=== PATIENT | male | born 1985 | race Caucasian/White ===

== ENCOUNTER 2018-01-30 01:00 | Inpatient (IN) | payer OTHER ==
[~2018-01-30] VITALS: Ht 172.7 cm; Wt 57.0 kg
[2018-01-30] MEDS ORDERED: LIBRIUM (01:15)
[2018-01-30] MEDS ORDERED: METOCLOPRAMIDE HCL 10 MG/2 ML VIAL IV ONE (01:30)
[2018-01-30] MEDS ORDERED: PANTOPRAZOLE SODIUM IV 80 MG in IV DEXTROSE 5% 100 ML IV ONE (01:30)
[2018-01-30] MEDS ORDERED: PANTOPRAZOLE SODIUM IV 80 MG in IV DEXTROSE 5% 500 ML IV ONE (01:30)
[2018-01-30 01:39] LABS: BASOPHILS # (AUTO) 0.1 K/uL (0.0-8.0); BASOPHILS % (AUTO) 2.2 % (0.0-2.0); EOSINOPHILS # (AUTO) 0.1 K/uL (0.0-0.7); EOSINOPHILS % (AUTO) 1.6 % (0.0-7.0); HEMATOCRIT 26.5 % (36.7-47.1); HEMOGLOBIN 8.4 g/dL (12.5-16.3); LYMPHOCYTES % (AUTO) 22.9 % (20.5-51.5); MEAN CORPUSCULAR HEMOGLOBIN 22.7 uug (23.8-33.4); MEAN CORPUSCULAR HGB CONC 32 g/dL (32.5-36.3); MEAN CORPUSCULAR VOLUME 71.1 fL (73.0-96.2); MONOCYTES # (AUTO) 0.4 K/uL (2.0-10.0); NEUTROPHILS # (AUTO) 2.8 K/uL (1.8-8.9); NEUTROPHILS % (AUTO) 64.3 % (38.5-71.5); PLATELET COUNT (AUTO) 187 K/uL (152-348); RED BLOOD CELL COUNT(AUTO) 3.72 MIL/uL (4.06-5.63); WHITE BLOOD COUNT (AUTO) 4.3 K/uL (3.6-10.2)
[2018-01-30 01:44] LABS: CREATININE 0.9 mg/dL (0.6-1.3); POTASSIUM 3.8 mmol/L (3.5-5.1)
[2018-01-30] MEDS ORDERED: METOCLOPRAMIDE HCL 10 MG/2 ML VIAL ONE (01:47)
[2018-01-30] MEDS ORDERED: PANTOPRAZOLE SODIUM 40 MG VIAL ONE (01:47)
[2018-01-30 01:49] LABS: BILIRUBIN,DIRECT 0.7 mg/dL (0.0-0.2); BILIRUBIN,TOTAL 1.3 mg/dL (0.2-1.0); TOTAL PROTEIN, SERUM 7.8 g/dL (6.4-8.2)
[2018-01-30] MEDS ORDERED: LORAZEPAM 2 MG/1 ML VIAL IV ONE (02:00)
[2018-01-30] MEDS ORDERED: LORAZEPAM 2 MG/1 ML VIAL ONE (02:09)
--- NOTE | 2018-01-30 02:13 | NUR ---
Dr. Queen talking to Matt Bronson.
[2018-01-30] MEDS ORDERED: OCTREOTIDE ACETATE DRIP 1,250 MCG in IV NORMAL SALINE 250 ML IV ONE ×2 (02:15→05:45)
[2018-01-30] MEDS ORDERED: OCTREOTIDE ACETATE 50 MCG in IV NORMAL SALINE 50 ML IV ONE (02:15)
[2018-01-30] MEDS ORDERED: OCTREOTIDE ACETATE 500 MCG/1 ML VIAL ONE (02:24)
[2018-01-30] MEDS ORDERED: DIAZ10TA4 PO (02:29)
[2018-01-30] MEDS ORDERED: CHLO25CA22 PO ×3 (02:34)
[2018-01-30 02:38] LABS: EOSINOPHILS % (MANUAL) 1 % (0-8); LYMPHOCYTES % (MANUAL) 26 % (20-40); MONOCYTES % (MANUAL) 5 % (2-10); NEUTROPHILS % (MANUAL) 68 % (42-75)
--- NOTE | 2018-01-30 03:18 | NUR ---
TRANSFERED TO [facility]IA [facility]
[2018-01-30 03:20] VITALS: BP 95/62
--- NOTE | 2018-01-30 03:25 | NUR ---
IN FROM ER VIA [facility] ADMITTED 32 YEAR OLD M TO [facility] WITH DX OF HEMATEMESIS. AAOX3, DENIES ANY SOB OR CHEST PAIN. IV SITE ON LFA AND RFA, PATENT AND INTACT. ROUTINE ADMISSION DONE. PLAN OF CARE INITIATED. SAFETY MEASURES INITIATED, CALL ROBISON WITHIN REACH.
[2018-01-30] MEDS ORDERED: ONDANSETRON 4 MG/2 ML VIAL IV PRN (05:45)
[2018-01-30] MEDS ORDERED: ACETAMINOPHEN 325 MG TABLET PO PRN (05:45)
[2018-01-30] MEDS ORDERED: Z GUARD REMEDY PASTE 57 GM TUBE TOP PRN (05:45)
[2018-01-30] MEDS: LACTULOSE 20 G/30 ML LIQUID UDC PO SCH ×4 (06:31→23:00)
[2018-01-30] MEDS: IV NS 1000 ML 1,000 ML IV PRN ×2 (06:36→22:18)
[2018-01-30 06:53] LABS: HEMATOCRIT 28.8 % (36.7-47.1); HEMOGLOBIN 9.2 g/dL (12.5-16.3)
--- NOTE | 2018-01-30 06:53 | NUR ---
PT RESTING COMFORTABLY ON BED, NO SIGNS OF RESPIRATORY DISTRESS NOTED. IV SITE, PATENT AND INTACT. NO EPISODE OF NAUSEA/VOMITING THROUGHOUT THE SHIFT. SAFE ENVIRONMENT MAINTAINED AT ALL TIMES, CALL ROBISON WITHIN REACH
--- NOTE | 2018-01-30 07:41 | NUR ---
PATIENT RESTING COMFORTABLY IN BED, STABLE. NO S/S OF DISTRESS AT THIS TIME. ETOH WITHDRAWALS, WITH MONITOR AND MANAGE. AMBULATORY, A/OX4. WILL MONITOR THROUGHOUT SHIFT.
[2018-01-30 08:35] VITALS: BP 103/71
[2018-01-30] MEDS: SPIRONOLACTONE 50 MG TABLET PO SCH (08:36)
[2018-01-30] MEDS: FUROSEMIDE 40 MG TABLET PO SCH (08:36)
[2018-01-30] MEDS: PANTOPRAZOLE SODIUM 40 MG VIAL IV SCH ×2 (09:16→20:30)
[2018-01-30] MEDS: LORAZEPAM 2 MG/1 ML VIAL IV PRN ×3 (09:16→20:42)
[2018-01-30] MEDS: MULTIVITAMINS,THERAPEUTIC TABLET PO SCH (11:11)
[2018-01-30] MEDS: FOLIC ACID 1 MG TABLET PO SCH (11:11)
[2018-01-30] MEDS: THIAMINE HCL 100 MG TABLET PO SCH (11:11)
[2018-01-30 11:16] VITALS: BP 100/67
[2018-01-30 11:43] LABS: HEMATOCRIT 25.7 % (36.7-47.1); HEMOGLOBIN 8.2 g/dL (12.5-16.3)
[2018-01-30] MEDS: MORPHINE SULFATE 2 MG/1 ML DISP.SYRIN IV PRN ×3 (11:56→22:18)
[2018-01-30 12:35] LABS: *BILIRUBIN,URIN NEGATIVE (NEGATIVE); *BLOOD, URINE NEGATIVE (NEGATIVE); *CLARITY,URINE CLEAR (CLEAR); *COLOR,URINE LIGHT YELLOW (YELLOW); *KETONES,URINE NEGATIVE (NEGATIVE); *PROTEIN,URINE NEGATIVE (NEGATIVE); *UROBILINOGEN,URINE 0.2 E.U./dl (NORMAL); LEUKOCYTE ESTERASE ,URINE NEGATIVE (NEGATIVE); NITRITE, URINE NEGATIVE (NEGATIVE); UGLUCOSE TRACE (NEGATIVE)
[2018-01-30 13:00] LABS: BACTERIA,URINE NONE SEEN /HPF (NONE SEEN); RBC,URINE 0-3 /HPF (0-3); SQUAMOUS EPITHELIAL CELL,UR FEW /HPF (NONE SEEN); WBC,URINE 0-3 /HPF (0-3)
[2018-01-30 14:38] LABS: BILIRUBIN,TOTAL 1.2 mg/dL (0.2-1.0); CREATININE 0.9 mg/dL (0.6-1.3); MAGNESIUM 1.8 mg/dL (1.8-2.4); PHOSPHOROUS 3.5 mg/dL (2.5-4.9); POTASSIUM 3.9 mmol/L (3.5-5.1); TOTAL PROTEIN, SERUM 6.5 g/dL (6.4-8.2)
[2018-01-30 15:04] VITALS: BP 99/63
[2018-01-30 17:27] LABS: HEMATOCRIT 28.5 % (36.7-47.1)
[2018-01-30 19:00] VITALS: BP 104/61
--- NOTE | 2018-01-30 19:30 | NUR ---
Received patient from day shift nurse. Patient in stable condition with no signs of acute distress. A/Ox4 & able to make all needs known. Patient currently sleeping comfortably at start of shift. Pertinent assessment completed. Vital signs within range. IV fluid running into left forearm IV with no signs of infiltration or swelling at IV site. Per day shift RN, patient scheduled for EGD tomorrow AM. NPO after midnight. Consent form signed & in chart. Room checked for safety at beginning of shift. Call light within reach. Will continue to monitor through shift.
[2018-01-30 20:28] LABS: *OCCULT BLOOD STOOL NEGATIVE (NEGATIVE)
[2018-01-30 23:29] LABS: HEMATOCRIT 24.7 % (36.7-47.1); HEMOGLOBIN 7.7 g/dL (12.5-16.3)
[2018-01-31 04:00] VITALS: BP 107/57
[2018-01-31] MEDS: MORPHINE SULFATE 2 MG/1 ML DISP.SYRIN IV PRN ×3 (04:31→15:19)
[2018-01-31] MEDS: LORAZEPAM 2 MG/1 ML VIAL IV PRN ×3 (05:27→15:19)
[2018-01-31] MEDS: LACTULOSE 20 G/30 ML LIQUID UDC PO SCH ×3 (06:00→18:00)
--- NOTE | 2018-01-31 06:19 | NUR ---
All needs attended to through out the shift. Patient remained stable with no acute distress. vital signs within range. All medications administered per MD order. Patient kept NPO after midnight for EGD procedure today. Patient compliant with care. Pain management provided. Safety measures maintained. Call light within reach. Will endorse to day shift nurse.
[2018-01-31 06:20] LABS: BASOPHILS # (AUTO) 0.1 K/uL (0.0-8.0); BASOPHILS % (AUTO) 2.3 % (0.0-2.0); EOSINOPHILS # (AUTO) 0.1 K/uL (0.0-0.7); HEMOGLOBIN 8.7 g/dL (12.5-16.3); LYMPHOCYTES # (AUTO) 0.9 K/uL (20.0-40.0); LYMPHOCYTES % (AUTO) 25.7 % (20.5-51.5); MEAN CORPUSCULAR HGB CONC 31 g/dL (32.5-36.3); MEAN CORPUSCULAR VOLUME 70.8 fL (73.0-96.2); MONOCYTES # (AUTO) 0.2 K/uL (2.0-10.0); MONOCYTES % (AUTO) 6.4 % (0.0-11.0); NEUTROPHILS # (AUTO) 2.3 K/uL (1.8-8.9); NEUTROPHILS % (AUTO) 63.6 % (38.5-71.5); PLATELET COUNT (AUTO) 204 K/uL (152-348); RED BLOOD CELL COUNT(AUTO) 3.96 MIL/uL (4.06-5.63); WHITE BLOOD COUNT (AUTO) 3.7 K/uL (3.6-10.2)
[2018-01-31 06:30] LABS: CREATININE 0.9 mg/dL (0.6-1.3); MAGNESIUM 1.7 mg/dL (1.8-2.4); PHOSPHOROUS 3.7 mg/dL (2.5-4.9); POTASSIUM 3.4 mmol/L (3.5-5.1)
[2018-01-31 06:44] LABS: THYROID STIMULATING HORMONE 2.815 mIU/mL (0.358-3.740)
--- NOTE | 2018-01-31 07:10 | NUR ---
Received pt awake, alert and oriented time 4. Pt is able to verbalize his needs. no immediate s/s of SOB, distress or discomfort.
[2018-01-31] MEDS: MULTIVITAMINS,THERAPEUTIC TABLET PO SCH (08:38)
[2018-01-31] MEDS: FOLIC ACID 1 MG TABLET PO SCH (08:38)
[2018-01-31] MEDS: THIAMINE HCL 100 MG TABLET PO SCH (08:38)
[2018-01-31] MEDS: FUROSEMIDE 40 MG TABLET PO SCH (08:39)
[2018-01-31] MEDS: SPIRONOLACTONE 50 MG TABLET PO SCH (08:41)
[2018-01-31] MEDS: PANTOPRAZOLE SODIUM 40 MG VIAL IV SCH (08:55)
--- NOTE | 2018-01-31 10:29 | NUR ---
Called surgery if an EGD was scheduled for the pt and no EGD was scheduled for the pt as of today. Called Dr Ramires's office and left a message to please call back to find out if the pt still needs a EGD done today. Pt. is aware. Pt is still NPO
[2018-01-31 11:40] VITALS: BP 98/61
[2018-01-31] MEDS: IV NS 1000 ML 1,000 ML IV PRN (12:02)
[2018-01-31] MEDS: POTASSIUM CHLORIDE 50 ML IV SCH ×2 (12:24→13:15)
--- NOTE | 2018-01-31 13:10 | NUR ---
Potassium IV held. Pt stated his arm was burning. Pt stated to remove his IV. Pt was compliant with the start of a new one peripheral IV, 20 g insert in his right upper forearm. Tolerated well, one time try, flushed 10ml saline
--- NOTE | 2018-01-31 13:40 | NUR ---
Pt went down for EGD procedure, accompanied by two surgery nurses
[2018-01-31] MEDS ORDERED: MIDAZOLAM HCL 2 MG/2 ML VIAL ONE (14:04)
[2018-01-31] MEDS: MAGNESIUM SULFATE/D5W 100 ML IV SCH ×2 (15:12→15:15)
[2018-01-31 16:00] VITALS: BP 102/62
[2018-01-31] MEDS ORDERED: PROPOFOL 200 MG/20 ML BOTTLE IV ONE (18:03)
[2018-01-31] MEDS ORDERED: IV NORMAL SALINE 1000 ML BAG IV ONE (18:03)
[2018-01-31] MEDS ORDERED: LIDOCAINE 1% 30 ML VIAL INJ ONE (18:03)
--- NOTE | 2018-01-31 18:07 | NUR ---
Pt has been discharged with orders from DR. Estevez. Addendum: 01/31/18 at 1949 by JOSIAS MUÑOZ RN Pt was discharged to self. ID and IV line removed. Personal belonging, classification control clerk and medications given back to the pt, the pt signed personal belongings list. Pt signed discharge papers.
== END 2018-01-31 18:04 | disposition home or self-care (01) | DRG 280 ==
LOC: ER 01:04 → MED 02:59
PROVIDERS: ADMIT Nurse Practitioner Acute Care; ATTEND Nurse Practitioner Acute Care
PROC: 0DJ08ZZ Inspection of Upper Intestinal Tract, Via Natural or Artificial Opening Endoscopic (ICD-10-PCS; principal; 2018-01-31 14:15)
DX: K70.31 Alcoholic cirrhosis of liver with ascites (principal); I85.11 Secondary esophageal varices with bleeding; K76.6 Portal hypertension; R56.9 Unspecified convulsions; E83.51 Hypocalcemia; K86.1 Other chronic pancreatitis; E87.1 Hypo-osmolality and hyponatremia; F10.230 Alcohol dependence with withdrawal, uncomplicated; Y90.9 Presence of alcohol in blood, level not specified; K31.89 Other diseases of stomach and duodenum; K20.9 Esophagitis, unspecified; K80.20 Calculus of gallbladder without cholecystitis without obstruction; K21.0 Gastro-esophageal reflux disease with esophagitis; G89.29 Other chronic pain; F41.9 Anxiety disorder, unspecified; D50.0 Iron deficiency anemia secondary to blood loss (chronic); Z59.0 Homelessness; E11.9 Type 2 diabetes mellitus without complications; Z82.49 Family history of ischemic heart disease and other diseases of the circulatory system
CPT/HCPCS: 36415; 43235; 70030-TC; 70450; 71045; 76705; 83690; 83735; 84100; 84443; 85018; 85025; 85730; 87086; 93005; 93307; A4217; A4663; C9113; J2001; J2060; J2250; J2270; J2354; J2765; J3475; J3480; J3490; J7030; J7050; J7060

== ENCOUNTER 2018-02-01 01:32 | Emergency (ER) | payer OTHER ==
[~2018-02-01] VITALS: Ht 172.7 cm; Wt 54.4 kg
[~2018-02-01 01:32] MED LIST: CHLO25CA22 PO; DIAZ10TA4 PO
[2018-02-01] MEDS ORDERED: MAG HYDROX/AL HYDROX/SIMETH 30 ML LIQUID UDC ONE ×2 (02:29)
[2018-02-01] MEDS: LIDOCAINE VISCUS 2% 15 ML UDC MM ONE (02:29)
[2018-02-01] MEDS: MAG HYDROX/AL HYDROX/SIMETH 30 ML LIQUID UDC PO ONE (02:29)
[2018-02-01] MEDS ORDERED: LIDOCAINE VISCUS 2% 15 ML UDC ONE ×2 (02:30)
[2018-02-01] MEDS: LORAZEPAM 0.5 MG TABLET PO ONE (03:56)
[2018-02-01] MEDS ORDERED: LORAZEPAM 0.5 MG TABLET ONE (03:57)
--- NOTE | 2018-02-01 06:43 | NUR ---
Pt waiting to be seen by case management social worker.
--- NOTE | 2018-02-01 07:16 | NUR ---
PATEINT IS AWAKE, ALERT, ORIENED X4 IN NO DISTRESS. STATES HE IS LOOKING FOR A "[address]" AND REQUESTS TO SPEAK TO SW. STATES LAST DRINK WAS YESTERDAY.
--- NOTE | 2018-02-01 09:18 | NUR ---
MIGUEL ANGEL, MEASUREMENT TECHNICIAN HERE TO ASSESS PATIENT.
--- NOTE | 2018-02-01 11:17 | NUR ---
9:10am: SW arrived to ED for SS consult. LOU met with LUPE Cary and Dr. Michael to discuss patient's case. SW then met with patient in his assigned ED room, and patient was receptive to meeting with this SW. Patient is a 32 year old homeless male who was discharged from [facility] 1 day ago, and was now back in the ED. Patient stated that he was working with the hospital SW (Roberta) on options for alcohol recovery programs, however he had to leave the hospital because of a "family emergency". Patient reported that he used to live with his parents, up until 4 months ago when his parents moved to [place]. Patient stated that he has been homeless for the past 4 months, living in the streets or in bell. Patient reported a long history of alcohol abuse, starting at the age of 15. Patient reported having multiple medical problems, including liver cirrhosis, and now wanting to go to a treatment center in order to become sober. Patient reported that he has not had much to drink in the past month due to being in and out of hospitals, stating that his last drink was a few days ago when he drank two 12 oz beers, and that he was ready to get sober. LOU consulted with LOU Granados to learn about the discharge plans/resources that were provided to the patient. Roberta stated that patient was referred to [facility] [phone] and that they would be calling him in a few days to discuss program enrollment. LOU then met with patient and informed him that based on his insurance benefits, Roberta had referred him to [facility] (see notes in previous admission chart). Patient asked about programs in [place] and LOU provided him with information on the Recovery [facility] in [place] [phone]. Patient asked SW to assist with calling the Recovery [facility], and LOU called and spoke with Jabier who stated that he will look for programs that are covered by the patient's insurance and contact the patient directly with additional information. LOU and patient agreed, and LOU provided Jabier with patient's phone number for direct contact [phone]. LOU then provided patient with a handout with the following resources: [facility] [id number] [place] [address], ; [facility] [address] [place], [place] [id number]; [facility] [address] [facility]. [place], ; [facility] [phone]. SW then asked patient if he was interested in any other homeless resources, such as shelters, locations for meals and showers, and patient stated that he already knows all those places and declined resources. Copy of the list of Drug/alcohol rehab resources filed in patient's ED chart. LUPE Reid informed by this SW that SS consultation was complete and resources were provided.
--- NOTE | 2018-02-01 11:25 | NUR ---
PATIENT RECEIVED REFERRALS TO HELP HIM WITH HIS ALCOHOL PROBLEM. HE ATE BREAKFAST AND LUNCH. DC AND FOLLOW UP INSTRUCTIONS GIVEN AND EXPLAINED TO PATIENT WHO STATES HE UNDERSTANDS ALL INSTRUCTIONS.
== END 2018-02-01 11:37 | disposition home or self-care (01) ==
LOC: ER 01:36
DX: J02.9 Acute pharyngitis, unspecified (principal); F17.200 Nicotine dependence, unspecified, uncomplicated; Z59.0 Homelessness; Z87.19 Personal history of other diseases of the digestive system
CPT/HCPCS: 71045; A4663